=== PATIENT | male | born 1940 | race Caucasian/White ===

== ENCOUNTER 2016-11-25 08:56 | Inpatient (IN) | payer MEDICARE, MEDICAID ==
[~2016-11-25] VITALS: Ht 165.1 cm; Wt 60.9 kg
[~2016-11-25 08:56] MED LIST: AMLO-511 PO; DIVA500T52 PO; LISI-662 PO; MAGOX PO; METO-558 PO; OLAN10TA6 PO
[2016-11-25 09:47] LABS: BASOPHILS % (AUTO) 0.6 % (0.0-2.0); EOSINOPHILS % (AUTO) 1.7 % (1.0-6.0); HEMATOCRIT 39.2 % (41-53); HEMOGLOBIN 13.3 g/dL (13.5-17.5); LYMPHOCYTES # (AUTO) 0.6 K/uL (1.0-4.8); MEAN CORPUSCULAR HEMOGLOBIN 31.2 pg (26.0-34.0); MEAN CORPUSCULAR VOLUME 92 fL (80-100); MONOCYTES # (AUTO) 0.4 K/uL (0.1-1.0); MONOCYTES % (AUTO) 14.5 % (2.0-9.0); NEUTROPHILS # (AUTO) 1.9 K/uL (1.8-7.7); NEUTROPHILS % (AUTO) 62.2 % (40.0-70.0); PLATELET COUNT (AUTO) 202 K/uL (150-450); RED BLOOD CELL COUNT(AUTO) 4.27 MIL/uL (4.50-5.90); RED CELL DISTRIBUTION WIDTH 14.7 % (11.5-14.5)
[2016-11-25 09:52] LABS: ANION GAP 6 mmol/L (8-16); CARBON DIOXIDE 31 mmol/L (22-29); CHLORIDE 103 mmol/L (98-107); CREATININE 0.94 mg/dL (0.60-1.30); GLOMERULAR FILTR. RATE CALC > 60 mL/min (>60); SODIUM SERUM 140 mmol/L (136-145); UREA NITROGEN, BLOOD 18 mg/dL (7-18)
[2016-11-25 09:57] LABS: ALANINE AMINOTRANSFERASE 31 U/L (12-78); ALBUMIN 3.4 g/dL (3.4-5.0); ASPARTATE AMINOTRANSFERASE 22 U/L (15-37); BILIRUBIN,TOTAL 0.4 mg/dL (0.1-1.0); TOTAL PROTEIN, SERUM 6.9 g/dL (6.4-8.2)
[2016-11-25] MEDS ORDERED: OLANZapine 10 MG RAPDIS TABLET PO ONE (10:30)
[2016-11-25] MEDS ORDERED: OLANZapine 5 MG RAPDIS TABLET PO PRN (11:15)
[2016-11-25] MEDS ORDERED: ZOLPIDEM TARTRATE 10 MG TABLET PO PRN (11:15)
[2016-11-25] MEDS ORDERED: LORazepam 2 MG/ML VIAL IM ONE (11:30)
[2016-11-25] MEDS ORDERED: DiphenhydrAMINE HCL 50 MG/ML VIAL IM ONE (11:30)
[2016-11-25] MEDS ORDERED: HALOPERIDOL LACTATE 5 MG/ML VIAL IM ONE (11:30)
[2016-11-25 20:15] VITALS: BP 141/79
[2016-11-25] MEDS: DIVALPROEX SODIUM 500 MG ER TABLET PO SCH (21:00)
[2016-11-25] MEDS: OLANZapine 10 MG RAPDIS TABLET PO SCH (21:00)
[2016-11-26 08:20] VITALS: BP 112/68
[2016-11-26] MEDS: LISINOPRIL 20 MG TABLET PO SCH (09:00)
[2016-11-26] MEDS: METOPROLOL SUCCINATE 25 MG ER TABLET PO SCH (09:00)
[2016-11-26 18:28] VITALS: BP 116/70
[2016-11-26] MEDS: DIVALPROEX SODIUM 500 MG ER TABLET PO SCH (21:00)
[2016-11-26] MEDS: OLANZapine 10 MG RAPDIS TABLET PO SCH (21:00)
[2016-11-27 08:41] VITALS: BP 114/68
[2016-11-27] MEDS: METOPROLOL SUCCINATE 25 MG ER TABLET PO SCH (09:00)
[2016-11-27] MEDS: LISINOPRIL 20 MG TABLET PO SCH (09:00)
[2016-11-27] MEDS ORDERED: LORazepam 2 MG/ML VIAL ONE (14:56)
[2016-11-27] MEDS ORDERED: HALOPERIDOL LACTATE 5 MG/ML VIAL IM ONE (15:00)
[2016-11-27] MEDS ORDERED: DiphenhydrAMINE HCL 50 MG/ML VIAL IM ONE (15:00)
[2016-11-27] MEDS ORDERED: LORazepam 2 MG/ML VIAL IM ONE (15:00)
[2016-11-27] MEDS: DIVALPROEX SODIUM 500 MG ER TABLET PO SCH (21:00)
[2016-11-27] MEDS: OLANZapine 10 MG RAPDIS TABLET PO SCH (21:00)
[2016-11-28 08:04] VITALS: BP 129/84
[2016-11-28] MEDS: METOPROLOL SUCCINATE 25 MG ER TABLET PO SCH (09:00)
[2016-11-28] MEDS: LISINOPRIL 20 MG TABLET PO SCH (09:00)
[2016-11-28 16:04] VITALS: BP 116/74
[2016-11-28] MEDS: DIVALPROEX SODIUM 500 MG ER TABLET PO SCH (21:00)
[2016-11-28] MEDS: OLANZapine 10 MG RAPDIS TABLET PO SCH (21:00)
[2016-11-29 08:21] VITALS: BP 128/86
[2016-11-29] MEDS: LISINOPRIL 5 MG TABLET PO SCH (09:00)
[2016-11-29] MEDS: METOPROLOL SUCCINATE 25 MG ER TABLET PO SCH (09:00)
[2016-11-29] MEDS: DIVALPROEX SODIUM 500 MG ER TABLET PO SCH (20:49)
[2016-11-29] MEDS: OLANZapine 10 MG RAPDIS TABLET PO SCH (20:49)
[2016-11-30 08:12] VITALS: BP 112/68
[2016-11-30] MEDS: METOPROLOL SUCCINATE 25 MG ER TABLET PO SCH (09:00)
[2016-11-30] MEDS: LISINOPRIL 5 MG TABLET PO SCH (09:00)
[2016-11-30] MEDS: DIVALPROEX SODIUM 500 MG ER TABLET PO SCH (20:37)
[2016-11-30] MEDS: OLANZapine 10 MG RAPDIS TABLET PO SCH (20:37)
[2016-12-01] MEDS: LORazepam 2 MG TABLET PO PRN (09:26)
[2016-12-01] MEDS: METOPROLOL SUCCINATE 25 MG ER TABLET PO SCH (09:26)
[2016-12-01] MEDS: LISINOPRIL 5 MG TABLET PO SCH (09:26)
[2016-12-01 13:29] VITALS: BP 151/103
[2016-12-01] MEDS ORDERED: HALOPERIDOL LACTATE 5 MG/ML VIAL IM PRN (17:15)
[2016-12-01] MEDS: OLANZapine 10 MG RAPDIS TABLET PO SCH (20:30)
[2016-12-01] MEDS: DIVALPROEX SODIUM 500 MG ER TABLET PO SCH (20:31)
[2016-12-02] MEDS: LISINOPRIL 5 MG TABLET PO SCH (08:01)
[2016-12-02] MEDS: LORazepam 2 MG TABLET PO PRN ×2 (08:01→13:08)
[2016-12-02] MEDS: METOPROLOL SUCCINATE 25 MG ER TABLET PO SCH (08:01)
[2016-12-02 08:36] VITALS: BP 150/70
[2016-12-02 18:39] VITALS: BP 135/70
[2016-12-02] MEDS: DIVALPROEX SODIUM 500 MG ER TABLET PO SCH (21:57)
[2016-12-02] MEDS: OLANZapine 10 MG RAPDIS TABLET PO SCH (21:57)
[2016-12-03 08:00] VITALS: BP 185/100
[2016-12-03] MEDS: LISINOPRIL 5 MG TABLET PO SCH (08:29)
[2016-12-03] MEDS: METOPROLOL SUCCINATE 25 MG ER TABLET PO SCH (08:29)
[2016-12-03] MEDS: LORazepam 2 MG TABLET PO PRN ×2 (08:29→17:46)
[2016-12-03] MEDS: OLANZapine 5 MG RAPDIS TABLET PO SCH (09:32)
[2016-12-03 18:40] VITALS: BP 104/84
[2016-12-03] MEDS: DIVALPROEX SODIUM 500 MG ER TABLET PO SCH (20:10)
[2016-12-03] MEDS: OLANZapine 10 MG RAPDIS TABLET PO SCH (20:10)
[2016-12-04 01:33] VITALS: BP 154/77
[2016-12-04] MEDS: LORazepam 2 MG TABLET PO PRN (07:57)
[2016-12-04] MEDS: OLANZapine 5 MG RAPDIS TABLET PO SCH (07:57)
[2016-12-04] MEDS: LISINOPRIL 5 MG TABLET PO SCH (07:57)
[2016-12-04] MEDS: METOPROLOL SUCCINATE 25 MG ER TABLET PO SCH (07:57)
[2016-12-04 08:10] VITALS: BP 178/99
[2016-12-04] MEDS: LISINOPRIL 10 MG TABLET PO SCH (09:47)
[2016-12-04] MEDS ORDERED: LISINOPRIL 5 MG TABLET PO ONE (11:30)
[2016-12-04] MEDS ORDERED: LORazepam 2 MG/ML VIAL ONE (14:35)
[2016-12-04] MEDS ORDERED: DiphenhydrAMINE HCL 50 MG/ML VIAL ONE (14:36)
[2016-12-04] MEDS ORDERED: DiphenhydrAMINE HCL 50 MG/ML VIAL IM ONE (14:45)
[2016-12-04] MEDS ORDERED: HALOPERIDOL LACTATE 5 MG/ML VIAL IM ONE (14:45)
[2016-12-04] MEDS ORDERED: LORazepam 2 MG/ML VIAL IM ONE (14:45)
[2016-12-04] MEDS: DIVALPROEX SODIUM 500 MG ER TABLET PO SCH (20:59)
[2016-12-04] MEDS: OLANZapine 10 MG RAPDIS TABLET PO SCH (21:00)
[2016-12-05] MEDS: LISINOPRIL 10 MG TABLET PO SCH (07:53)
[2016-12-05] MEDS: OLANZapine 5 MG RAPDIS TABLET PO SCH (07:53)
[2016-12-05] MEDS: LORazepam 2 MG TABLET PO PRN ×2 (07:53→16:23)
[2016-12-05] MEDS: METOPROLOL SUCCINATE 25 MG ER TABLET PO SCH (07:54)
[2016-12-05 08:00] VITALS: BP 184/98
[2016-12-05 14:45] VITALS: BP 196/104
[2016-12-05] MEDS: CloNIDine HCL 0.1 MG TABLET PO PRN (14:52)
[2016-12-05 16:28] VITALS: BP 146/92
[2016-12-05] MEDS: OLANZapine 10 MG RAPDIS TABLET PO SCH (20:43)
[2016-12-05] MEDS: DIVALPROEX SODIUM 500 MG ER TABLET PO SCH (20:44)
[2016-12-06 00:49] VITALS: BP 158/80
[2016-12-06] MEDS: OLANZapine 5 MG RAPDIS TABLET PO SCH (08:20)
[2016-12-06] MEDS: METOPROLOL SUCCINATE 25 MG ER TABLET PO SCH (08:20)
[2016-12-06] MEDS: LISINOPRIL 10 MG TABLET PO SCH (08:20)
[2016-12-06] MEDS: LORazepam 2 MG TABLET PO PRN (08:20)
[2016-12-06 16:26] VITALS: BP 147/89
[2016-12-06] MEDS: DIVALPROEX SODIUM 500 MG ER TABLET PO SCH (21:27)
[2016-12-06] MEDS: OLANZapine 10 MG RAPDIS TABLET PO SCH (21:27)
[2016-12-07] MEDS: LISINOPRIL 10 MG TABLET PO SCH (08:40)
[2016-12-07] MEDS: OLANZapine 5 MG RAPDIS TABLET PO SCH (08:40)
[2016-12-07] MEDS: LORazepam 2 MG TABLET PO PRN ×2 (08:40→21:55)
[2016-12-07] MEDS: METOPROLOL SUCCINATE 25 MG ER TABLET PO SCH (08:40)
[2016-12-07] MEDS: VALPROIC ACID 250 MG/5 ML SYRUP UDCUP PO SCH ×2 (11:17→20:12)
[2016-12-07] MEDS: OLANZapine 10 MG RAPDIS TABLET PO SCH (20:12)
[2016-12-07 20:43] VITALS: BP 138/85
[2016-12-08] MEDS: LORazepam 2 MG TABLET PO PRN ×2 (08:00→17:52)
[2016-12-08] MEDS: METOPROLOL SUCCINATE 25 MG ER TABLET PO SCH (08:04)
[2016-12-08] MEDS: LISINOPRIL 10 MG TABLET PO SCH (08:04)
[2016-12-08] MEDS: OLANZapine 5 MG RAPDIS TABLET PO SCH (08:04)
[2016-12-08] MEDS: VALPROIC ACID 250 MG/5 ML SYRUP UDCUP PO SCH ×2 (08:05→21:03)
[2016-12-08] MEDS: CloNIDine HCL 0.1 MG TABLET PO PRN (17:41)
[2016-12-08 17:50] VITALS: BP 186/109
[2016-12-08 18:40] VITALS: BP 141/80
[2016-12-08] MEDS: OLANZapine 10 MG RAPDIS TABLET PO SCH (21:03)
[2016-12-09] MEDS: METOPROLOL SUCCINATE 25 MG ER TABLET PO SCH (07:51)
[2016-12-09] MEDS: LORazepam 2 MG TABLET PO PRN (07:53)
[2016-12-09] MEDS: OLANZapine 5 MG RAPDIS TABLET PO SCH (07:53)
[2016-12-09] MEDS: VALPROIC ACID 250 MG/5 ML SYRUP UDCUP PO SCH ×2 (07:53→20:41)
[2016-12-09] MEDS: CloNIDine HCL 0.1 MG TABLET PO PRN (07:53)
[2016-12-09] MEDS: LISINOPRIL 10 MG TABLET PO SCH (07:53)
[2016-12-09 08:00] VITALS: BP 186/96
[2016-12-09 17:58] VITALS: BP 148/97
[2016-12-09] MEDS: OLANZapine 10 MG RAPDIS TABLET PO SCH (20:41)
[2016-12-10] MEDS: CloNIDine HCL 0.1 MG TABLET PO PRN (07:43)
[2016-12-10] MEDS: VALPROIC ACID 250 MG/5 ML SYRUP UDCUP PO SCH (07:43)
[2016-12-10] MEDS: LISINOPRIL 10 MG TABLET PO SCH (07:44)
[2016-12-10] MEDS: LORazepam 2 MG TABLET PO PRN (07:44)
[2016-12-10] MEDS: OLANZapine 5 MG RAPDIS TABLET PO SCH (07:44)
[2016-12-10] MEDS ORDERED: METOPROLOL SUCCINATE 50 MG ER TABLET PO SCH (09:00)
[2016-12-10] MEDS ORDERED: LISI-661 PO (09:24)
[2016-12-10] MEDS ORDERED: OLAN10TA6 PO (09:25)
[2016-12-10] MEDS ORDERED: METO-558 PO (09:25)
[2016-12-10] MEDS ORDERED: VALP250 PO (09:26)
[2016-12-10] MEDS ORDERED: OLAN5TAB40 PO (09:26)
== END 2016-12-10 14:02 | disposition home or self-care (01) | DRG 885 ==
LOC: EMS 08:57 → 3EC 20:00
DX: F25.0 Schizoaffective disorder, bipolar type (principal); G93.40 Encephalopathy, unspecified; F03.90 Unspecified dementia, unspecified severity, without behavioral disturbance, psychotic disturbance, mood disturbance, and anxiety; D64.9 Anemia, unspecified; J44.9 Chronic obstructive pulmonary disease, unspecified; F41.9 Anxiety disorder, unspecified; I10 Essential (primary) hypertension; D72.819 Decreased white blood cell count, unspecified; F10.10 Alcohol abuse, uncomplicated; F17.200 Nicotine dependence, unspecified, uncomplicated; Z71.6 Tobacco abuse counseling; Z59.0 Homelessness; Z91.14 Patient's other noncompliance with medication regimen; Z79.899 Other long term (current) drug therapy; Z79.51 Long term (current) use of inhaled steroids
CPT/HCPCS: 96372; 99285; G0480; J1200; J1630; J2060

== ENCOUNTER 2016-12-27 17:56 | Inpatient (IN) | payer MEDICARE, MEDICAID ==
[~2016-12-27] VITALS: Ht 162.6 cm; Wt 63.1 kg
[~2016-12-27 17:56] MED LIST changes: -AMLO-511 PO; -DIVA500T52 PO; +LISI-661 PO; -LISI-662 PO; -MAGOX PO; +OLAN5TAB40 PO; +VALP250 PO
[2016-12-27] MEDS ORDERED: ZOLPIDEM TARTRATE 10 MG TABLET PO PRN (20:00)
[2016-12-27 20:15] VITALS: BP 159/90
[2016-12-27] MEDS ORDERED: PNEUMOCOCCAL VACCINE POLYVALENT 0.5 ML VIAL [PPSV23] IM ONE (20:15)
[2016-12-27] MEDS ORDERED: INFLUENZA VIRUS VACCINE QVS 2017-18 (3YR+)/PF 60 MCG/0.5 ML SYRINGE IM ONE (20:15)
[2016-12-27] MEDS ORDERED: ALBUTEROL SULFATE HFA 90 MCG/PUFF 8 GM INHALER IH PRN (21:00)
[2016-12-27] MEDS: LISINOPRIL 10 MG TABLET PO SCH (21:06)
[2016-12-28 06:47] VITALS: BP 149/81
[2016-12-28 08:33] VITALS: BP 164/93
[2016-12-28] MEDS: LISINOPRIL 10 MG TABLET PO SCH (08:36)
[2016-12-28] MEDS: METOPROLOL SUCCINATE 50 MG ER TABLET PO SCH (08:36)
[2016-12-28 08:55] LABS: BASOPHILS # (AUTO) 0.02 K/uL (0.00-0.20); BASOPHILS % (AUTO) 0.4 % (0.0-2.0); EOSINOPHILS # (AUTO) 0.08 K/uL (0.00-0.70); HEMATOCRIT 45.6 % (41-53); HEMOGLOBIN 14.7 g/dL (13.5-17.5); LYMPHOCYTES # (AUTO) 1.3 K/uL (1.0-4.8); LYMPHOCYTES % (AUTO) 25.2 % (22.0-44.0); MEAN CORPUSCULAR HEMOGLOBIN 30.5 pg (26.0-34.0); MEAN CORPUSCULAR HGB CONC 32.1 G/dL (31.0-37.0); MEAN CORPUSCULAR VOLUME 95 fL (80-100); MONOCYTES # (AUTO) 0.5 K/uL (0.1-1.0); MONOCYTES % (AUTO) 9.1 % (2.0-9.0); NEUTROPHILS # (AUTO) 3.3 K/uL (1.8-7.7); NEUTROPHILS % (AUTO) 63.8 % (40.0-70.0); PLATELET COUNT (AUTO) 206 K/uL (150-450); WHITE BLOOD COUNT (AUTO) 5.2 K/uL (4.5-11.0)
[2016-12-28 09:23] LABS: HEMOGLOBIN A1C 5.6 % (4.5-6.2)
[2016-12-28 09:41] LABS: ALANINE AMINOTRANSFERASE 37 U/L (12-78); ALBUMIN 3.6 g/dL (3.4-5.0); ANION GAP 5 mmol/L (8-16); ASPARTATE AMINOTRANSFERASE 38 U/L (15-37); BILIRUBIN,TOTAL 0.2 mg/dL (0.1-1.0); CALCIUM, TOTAL 9.3 mg/dL (8.8-10.5); CARBON DIOXIDE 31 mmol/L (22-29); CHLORIDE 104 mmol/L (98-107); CHOL/HDL RATIO 3.3 (4.2-7.3); CREATININE 0.99 mg/dL (0.60-1.30); GLOMERULAR FILTR. RATE CALC > 60 mL/min (>60); POTASSIUM 4.6 mmol/L (3.5-5.1); SODIUM SERUM 140 mmol/L (136-145); THYROID STIMULATING HORMONE 0.78 uIU/mL (0.36-3.74); TOTAL PROTEIN, SERUM 7.2 g/dL (6.4-8.2); UREA NITROGEN, BLOOD 25 mg/dL (7-18)
[2016-12-28 12:39] VITALS: BP 140/78
[2016-12-28 16:00] VITALS: BP 151/89
[2016-12-28] MEDS: LORazepam 2 MG TABLET PO PRN (16:22)
[2016-12-28] MEDS ORDERED: LORazepam 2 MG/ML VIAL IM ONE (19:00)
[2016-12-28] MEDS ORDERED: DiphenhydrAMINE HCL 50 MG/ML VIAL IM ONE (19:00)
[2016-12-28] MEDS ORDERED: HALOPERIDOL LACTATE 5 MG/ML VIAL IM ONE (19:00)
[2016-12-28] MEDS: VALPROIC ACID 250 MG CAPSULE PO SCH (20:38)
[2016-12-28] MEDS: OLANZapine 10 MG RAPDIS TABLET PO SCH (20:38)
[2016-12-29] MEDS: LISINOPRIL 10 MG TABLET PO SCH ×2 (09:00→09:07)
[2016-12-29] MEDS: OLANZapine 5 MG RAPDIS TABLET PO SCH ×2 (09:00→09:09)
[2016-12-29] MEDS: VALPROIC ACID 250 MG CAPSULE PO SCH ×4 (09:00→20:29)
[2016-12-29] MEDS: METOPROLOL SUCCINATE 50 MG ER TABLET PO SCH ×2 (09:00→09:07)
[2016-12-29] MEDS: OLANZapine 10 MG RAPDIS TABLET PO SCH (20:29)
[2016-12-30 06:04] VITALS: BP 139/80
[2016-12-30] MEDS: VALPROIC ACID 250 MG CAPSULE PO SCH ×2 (08:45→20:00)
[2016-12-30] MEDS: METOPROLOL SUCCINATE 50 MG ER TABLET PO SCH (08:45)
[2016-12-30] MEDS: OLANZapine 5 MG RAPDIS TABLET PO SCH (08:45)
[2016-12-30] MEDS: LISINOPRIL 10 MG TABLET PO SCH (08:45)
[2016-12-30] MEDS: LORazepam 2 MG TABLET PO PRN (17:09)
[2016-12-30] MEDS: OLANZapine 10 MG RAPDIS TABLET PO SCH (20:00)
[2016-12-31 08:26] VITALS: BP 145/82
[2016-12-31] MEDS: VALPROIC ACID 250 MG CAPSULE PO SCH (09:26)
[2016-12-31] MEDS: OLANZapine 5 MG RAPDIS TABLET PO SCH (09:26)
[2016-12-31] MEDS: METOPROLOL SUCCINATE 50 MG ER TABLET PO SCH (09:26)
[2016-12-31] MEDS: LISINOPRIL 10 MG TABLET PO SCH (09:26)
[2016-12-31 16:00] VITALS: BP 135/75
[2016-12-31] MEDS: LORazepam 2 MG TABLET PO PRN (16:09)
[2016-12-31] MEDS ORDERED: VALPROIC ACID 250 MG/5 ML SYRUP UDCUP PO ONE (21:15)
[2016-12-31] MEDS ORDERED: OLANZapine 10 MG RAPDIS TABLET PO ONE (21:15)
[2017-01-01 06:57] VITALS: BP 143/76
[2017-01-01 08:13] VITALS: BP 144/70
[2017-01-01] MEDS: METOPROLOL SUCCINATE 50 MG ER TABLET PO SCH (08:50)
[2017-01-01] MEDS: VALPROIC ACID 250 MG CAPSULE PO SCH ×2 (08:50→16:37)
[2017-01-01] MEDS: LISINOPRIL 10 MG TABLET PO SCH (08:50)
[2017-01-01] MEDS: OLANZapine 5 MG RAPDIS TABLET PO SCH (08:50)
[2017-01-01 16:00] VITALS: BP 153/91
[2017-01-01] MEDS: OLANZapine 10 MG RAPDIS TABLET PO SCH (16:37)
[2017-01-01] MEDS: LORazepam 2 MG TABLET PO PRN (16:37)
[2017-01-02 06:41] VITALS: BP 131/60
[2017-01-02] MEDS: LISINOPRIL 10 MG TABLET PO SCH (08:18)
[2017-01-02] MEDS: METOPROLOL SUCCINATE 50 MG ER TABLET PO SCH (08:18)
[2017-01-02] MEDS: OLANZapine 5 MG RAPDIS TABLET PO SCH (08:18)
[2017-01-02] MEDS: VALPROIC ACID 250 MG CAPSULE PO SCH ×2 (08:18→16:55)
[2017-01-02 08:28] VITALS: BP 149/74
[2017-01-02] MEDS: PENICILLIN G BENZATHINE LA 2,400,000 UNITS/4 ML SYRINGE IM SCH ×2 (12:30→12:32)
[2017-01-02 16:12] VITALS: BP 137/71
[2017-01-02] MEDS: OLANZapine 10 MG RAPDIS TABLET PO SCH (16:55)
[2017-01-02] MEDS: LORazepam 2 MG TABLET PO PRN (16:55)
[2017-01-03 05:57] VITALS: BP 128/79
[2017-01-03 08:05] VITALS: BP 142/86
[2017-01-03] MEDS: METOPROLOL SUCCINATE 50 MG ER TABLET PO SCH (08:31)
[2017-01-03] MEDS: OLANZapine 5 MG RAPDIS TABLET PO SCH (08:31)
[2017-01-03] MEDS: LISINOPRIL 10 MG TABLET PO SCH (08:31)
[2017-01-03] MEDS: VALPROIC ACID 250 MG CAPSULE PO SCH ×3 (08:34→21:05)
[2017-01-03 16:00] VITALS: BP 144/71
[2017-01-03] MEDS: LORazepam 2 MG TABLET PO PRN (17:53)
[2017-01-03] MEDS: OLANZapine 10 MG RAPDIS TABLET PO SCH (17:53)
[2017-01-04 01:55] VITALS: BP 138/85
[2017-01-04 08:15] VITALS: BP 129/72
[2017-01-04] MEDS: OLANZapine 5 MG RAPDIS TABLET PO SCH (08:39)
[2017-01-04] MEDS: METOPROLOL SUCCINATE 50 MG ER TABLET PO SCH (08:39)
[2017-01-04] MEDS: LISINOPRIL 10 MG TABLET PO SCH (08:39)
[2017-01-04] MEDS: VALPROIC ACID 250 MG CAPSULE PO SCH ×2 (08:39→17:12)
[2017-01-04 16:00] VITALS: BP 148/85
[2017-01-04] MEDS: OLANZapine 10 MG RAPDIS TABLET PO SCH (17:12)
[2017-01-04] MEDS: LORazepam 2 MG TABLET PO PRN (17:12)
[2017-01-05 06:45] VITALS: BP 142/85
[2017-01-05 08:04] VITALS: BP 142/85
[2017-01-05] MEDS: LISINOPRIL 10 MG TABLET PO SCH (08:21)
[2017-01-05] MEDS: LORazepam 2 MG TABLET PO PRN (08:21)
[2017-01-05] MEDS: METOPROLOL SUCCINATE 50 MG ER TABLET PO SCH (08:21)
[2017-01-05] MEDS: VALPROIC ACID 250 MG CAPSULE PO SCH (08:21)
[2017-01-05] MEDS: OLANZapine 5 MG RAPDIS TABLET PO SCH (08:21)
[2017-01-05 08:26] LABS: ALANINE AMINOTRANSFERASE 23 U/L (12-78); ALBUMIN 3.3 g/dL (3.4-5.0); ANION GAP 3 mmol/L (8-16); ASPARTATE AMINOTRANSFERASE 15 U/L (15-37); BILIRUBIN,TOTAL 0.2 mg/dL (0.1-1.0); CALCIUM, TOTAL 9.2 mg/dL (8.8-10.5); CARBON DIOXIDE 34 mmol/L (22-29); CHLORIDE 105 mmol/L (98-107); CREATININE 0.91 mg/dL (0.60-1.30); GLOMERULAR FILTR. RATE CALC > 60 mL/min (>60); POTASSIUM 4.7 mmol/L (3.5-5.1); SODIUM SERUM 142 mmol/L (136-145); TOTAL PROTEIN, SERUM 7.4 g/dL (6.4-8.2); UREA NITROGEN, BLOOD 16 mg/dL (7-18)
[2017-01-05 08:47] LABS: CREATINE KINASE MB 1.5 ng/mL (0-5); CREATINE KINASE, TOTAL 92 U/L (39-308)
== END 2017-01-05 14:09 | disposition home or self-care (01) | DRG 885 ==
LOC: B3A 19:55
DX: F25.0 Schizoaffective disorder, bipolar type (principal); D64.9 Anemia, unspecified; J44.9 Chronic obstructive pulmonary disease, unspecified; F23 Brief psychotic disorder; A53.9 Syphilis, unspecified; D72.819 Decreased white blood cell count, unspecified; R94.5 Abnormal results of liver function studies; I10 Essential (primary) hypertension; Z79.899 Other long term (current) drug therapy; Z91.14 Patient's other noncompliance with medication regimen
CPT/HCPCS: 83036; 83735; 84439; 84443; 87081; J0561